=== PATIENT | male | born 1950 | race Caucasian/White ===

== ENCOUNTER 2024-04-07 11:02 | Emergency (ER) | payer MEDICARE | END 2024-04-07 11:56 | disposition home or self-care (01) | LOC: BURERS 11:02 | DX: Z46.6 Encounter for fitting and adjustment of urinary device (principal) | CPT/HCPCS: 99283 ==

== ENCOUNTER 2024-04-08 12:58 | Emergency (ER) | payer MEDICARE ==
[2024-04-08 13:40] LABS: Bilirubin Negative (Negative); Blood, Urine Small (Negative); Clarity Cloudy (Clear); Glucose, Urine (Dipstick) Negative (Negative); Ketone, Urine Negative (Negative); Leukocyte Large (Negative); Nitrite Positive (Negative); Protein, Urine (Dipstick) Negative (Neg-Trace); Specific Gravity, Urine 1.015 (1.005-1.030); Urobilinogen 0.2 mg/dL (Less than 2)
[2024-04-08 13:41] LABS: Bacteria/HPF 2+ HPF (None Seen); CAUTI Indications for Culture Dysuria,urgency,freq; Squamous Epithelial 0-3 HPF (0-3); WBC/HPF Greater Than 50 HPF (0-3)
[2024-04-08 13:42] LABS: Urine Culture Reflex Yes Yes
[2024-04-08] MEDS ORDERED: Ciprofloxacin 500 MG TAB ONE (14:22)
== END 2024-04-08 14:36 | disposition home or self-care (01) ==
LOC: BURERS 12:58
DX: R33.9 Retention of urine, unspecified (principal); N39.0 Urinary tract infection, site not specified
CPT/HCPCS: 51702; 81001; 87077; 87086; 87186